=== PATIENT | male | born 1955 | race American Indian/Alaskan Native ===

== ENCOUNTER 2017-07-13 08:53 | Emergency (ER) | payer OTHER ==
[2017-07-13 09:03] VITALS: BMI 25.0
--- NOTE | 2017-07-13 09:25 | C.PDOC ---
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 The patient reports that he stood up to go use the bathroom and while standing he developed lightheadedness. Patient then sat down and felt improvement. Patient was found to have low BP in field by EMS. Currently the patient states he feels better and is asymptomatic. Denies Chest pain, SOB, numbness, weakness, leg pain/swelling, diaphoresis, fever, nausea, vomiting, headache, vision changes. Time Seen by Provider: 07/13/17 09:02 Chief Complaint (Nursing): Dizziness/Lightheaded History Per: Patient History/Exam Limitations: no limitations Onset/Duration Of Symptoms: Hrs (1) Current Symptoms Are (Timing): Still Present Past Medical History Reviewed: Historical Data, Nursing Documentation, Vital Signs Vital Signs: Last Vital Signs Temp 97.7 F 07/13/17 09:03 Pulse 92 H 07/13/17 09:03 Resp 18 07/13/17 09:03 BP 108/66 07/13/17 09:03 Pulse Ox 97 07/13/17 09:33 - Medical History PMH: Hypercholesterolemia Surgical History: Back Surgery (2003) Family History: States: No Known Family Hx - Social History Hx Alcohol Use: No Hx Substance Use: No - Immunization History Hx Tetanus Toxoid Vaccination: No Hx Influenza Vaccination: No Hx Pneumococcal Vaccination: No Review Of Systems Except As Marked, All Systems Reviewed And Found Negative. Constitutional: Negative for: Fever Eyes: Negative for: Vision Change Cardiovascular: Negative for: Chest Pain Respiratory: Negative for: Shortness of Breath Gastrointestinal: Negative for: Nausea, Vomiting Musculoskeletal: Negative for: Leg Pain Neurological: Positive for: Dizziness (near-syncope). Negative for: Weakness, Numbness, Headache Physical Exam - Physical Exam Appears: Well, No Acute Distress Skin: Normal Color, Warm, Dry, No Rash Head: Atraumatic, Normacephalic Eye(s): bilateral: Normal Inspection, PERRL, EOMI Nose: Normal Oral Mucosa: Moist Throat: Normal Neck: Normal ROM, Supple Chest: Symmetrical, No Tenderness Cardiovascular: Rhythm Regular, No Friction Rub, No Murmur Respiratory: Normal Breath Sounds, No Rales, No Rhonchi, No Stridor, No Wheezing Gastrointestinal/Abdominal: Normal Exam, Soft, No Tenderness Back: Normal Inspection, No CVA Tenderness Extremity: Normal ROM, No Pedal Edema, No Swelling Pulses: Left Radial: Normal, Right Radial: Normal, Left Dorsalis Pedis: Normal, Right Dorsalis Pedis: Normal Neurological/Psych: Oriented x3, Normal Speech, Normal Cranial Nerves, Normal Motor Gait: Steady ED Course And Treatment O2 Sat by Pulse Oximetry: 97 (on RA) Pulse Ox Interpretation: Normal Medical Decision Making Medical Decision Making: fingerstick is 183. Patient states that he recently had been placed on Flomax for elevated PSA, and was recently increased from 1 tablet to 2 tabs daily. This most likely causing hypotension. Also the patient did not eat or drink this morning. On re-exam, the patient remains asymptomatic. Lungs are CTA, heart is RRR, abdomen is soft, non-tender and is tolerating PO well. Ambulatory in the ED with steady gait. Follow up with the medical doctor within 1-2 days without fail. Return if worsened. Disposition Counseled Patient/Family Regarding: Studies Performed, Diagnosis, Need For Followup - Disposition Referrals: [facility] [Outside] Disposition: HOME/ ROUTINE Disposition Time: 10:17 Condition: GOOD Additional Instructions: DISCUSS WITH THE PMD ABOUT DECREASING THE FLOMAX TO ONCE PER DAY, NOT TWICE, WHICH MAY BE CAUSING THE HYPOTENSION. Follow up with the medical doctor within 1-2 days. Return if worsened. Instructions: Near Fainting (DC) Forms: [facility] (Japanese) - Clinical Impression Clinical Impression: Near syncope - Scribe Statement The provider has reviewed the documentation as recorded by the Scribe (ellis Chapman) All medical record entries made by the Scribe were at my direction and personally dictated by me. I have reviewed the chart and agree that the record accurately reflects my personal performance of the history, physical exam, medical decision making, and the department course for this patient. I have also personally directed, reviewed, and agree with the discharge instructions and disposition.
[2017-07-13 10:27] VITALS: BP 125/77; PULSE 94; RESP 20; TEMP 98; O2SAT 98
--- NOTE | 2017-07-13 13:10 | CARD ---
APPROVED REPORT EKG Measurement Heart [id number] <Conclusion> Normal sinus rhythm Nonspecific T wave abnormality Abnormal ECG
== END 2017-07-13 10:27 | disposition home or self-care (01) ==
LOC: C.ER 08:53
DX: R55 Syncope and collapse (principal); E78.00 Pure hypercholesterolemia, unspecified

== ENCOUNTER 2017-08-03 09:15 | Emergency (ER) | payer OTHER ==
[2017-08-03 09:15] VITALS: BMI 25.0
[2017-08-03] MEDS ORDERED: Sodium Chloride 0.9% 1,000 ML IV ONE (10:47)
[2017-08-03 11:09] LABS: BASO % 0.4 % (0.0-2.0); EOS # 0.1 K/uL (0.0-0.7); EOS % 1.7 % (0.0-4.0); HEMOGLOBIN 11.9 g/dL (12.0-18.0); LYMPH # 1.7 K/uL (1.0-4.3); LYMPH % 21.2 % (20.0-40.0); MEAN CELL VOLUME 84.6 fL (80.0-94.0); MEAN CORPUSCULAR HEMOGLOBIN 28.9 pg (27.0-31.0); MEAN CORPUSCULAR HGB CONC 34.2 g/dL (33.0-37.0); MEAN PLATELET VOLUME 7.7 fL (7.2-11.7); MONO # 0.5 K/uL (0.0-0.8); MONO % 5.7 % (0.0-10.0); NEUT # 5.7 K/uL (1.8-7.0); NRBC % 0.1 % (0.0-2.0); RBC 4.12 Mil/uL (4.40-5.90); RED CELL DISTRIBUTION WIDTH 13.7 % (11.5-14.5); WHITE BLOOD COUNT 8.1 K/uL (4.8-10.8)
[2017-08-03] MEDS ORDERED: Sodium Chloride 0.9% 1,000 ML ONE (11:13)
--- NOTE | 2017-08-03 11:20 | C.PDOC ---
History Of Present Illness 62 y/o male with diet controlled dm, high cholesterol and recently elevated PSA and uti (just finished bactrim on Sun) c/o 3 days of epigastric pain, nausea, decreased appetite. Pt unable to sleep last night due to pain. no vomiting or diarrhea. denies cp and sob. no cough. no fever or chills. pt with 23 pound wt loss in last 2 weeks. denies urinary symptoms, last bm today, normal. no change in bowel movements. Time Seen by Provider: 08/03/17 09:55 Chief Complaint (Nursing): Abdominal Pain History Per: Patient History/Exam Limitations: no limitations Onset/Duration Of Symptoms: Days (x3) Current Symptoms Are (Timing): Still Present Past Medical History Reviewed: Historical Data, Nursing Documentation, Vital Signs Vital Signs: Last Vital Signs Temp 98.6 F 08/03/17 16:16 Pulse 88 08/03/17 16:16 Resp 12 08/03/17 16:16 BP 114/68 08/03/17 16:16 Pulse Ox 96 08/03/17 16:41 - Medical History PMH: Back Problems, Benign Prostatic Hyperplasia, Hypercholesterolemia Surgical History: Back Surgery (2004 LUMBAR FUSION) - Social History Hx Alcohol Use: No Hx Substance Use: No - Immunization History Hx Tetanus Toxoid Vaccination: No Hx Influenza Vaccination: No Hx Pneumococcal Vaccination: No Review Of Systems Constitutional: Negative for: Fever, Chills Cardiovascular: Negative for: Chest Pain Respiratory: Negative for: Cough, Shortness of Breath Gastrointestinal: Positive for: Nausea, Abdominal Pain, Other (loss of appetite) . Negative for: Vomiting, Diarrhea, Constipation Genitourinary: Negative for: Dysuria, Frequency, Hematuria Physical Exam - Physical Exam Appears: No Acute Distress Skin: No Rash Head: Atraumatic, Normacephalic, Other (Mild temporal wasting) Eye(s): bilateral: PERRL, EOMI Oral Mucosa: Moist Neck: Supple Chest: No Tenderness Cardiovascular: Rhythm Regular, No Murmur Respiratory: No Rales, No Rhonchi, No Wheezing, Other (Clear to auscultation) Gastrointestinal/Abdominal: Bowel Sounds (normoactive), Soft, No Tenderness, No Distention Back: No CVA Tenderness Extremity: No Calf Tenderness, No Swelling Neurological/Psych: Oriented x3, Normal Speech, Normal Motor, Normal Sensation ED Course And Treatment - Laboratory Results Result Diagrams: 08/03/17 11:05 08/03/17 11:05 ECG: Interpreted By Me, Viewed By Me ECG Rhythm: Sinus Rhythm ECG Interpretation: Normal Rate From EC O2 Sat by Pulse Oximetry: 96 (RA) Pulse Ox Interpretation: Normal - Radiology CXR: Viewed By Me, Read By Radiologist CXR Interpretation: Yes: No Acute Disease - CT Scan/US Venous duplex- right lower ext Other Rad Studies (CT/US): Read By Radiologist, Radiology Report Reviewed CT/US Interpretation: Negative for DVT CT abdomen/pelvis Other Rad Studies (CT/US): Read By Radiologist, Radiology Report Reviewed CT/US Interpretation: FINDINGS: There is limited evaluation of the solid organs without the administration of IV contrast. LOWER THORAX: No visible consolidation, pleural effusion, or pneumothorax. LIVER: Unremarkable unenhanced appearance. GALLBLADDER AND BILE DUCTS: Unremarkable unenhanced appearance. PANCREAS: Unremarkable unenhanced appearance. SPLEEN: 13 mm probable splenule. Otherwise unremarkable unenhanced appearance. ADRENALS: Unremarkable unenhanced appearance. KIDNEYS AND URETERS: No hydronephrosis or obstructing renal calculus. BLADDER: Mildly thick-walled under distended urinary bladder. REPRODUCTIVE: The prostate gland measures approximately 4.1 x 5.5 cm. APPENDIX: The presumed appendix appears within normal limits of caliber. No secondary signs of acute appendicitis. BOWEL: The stomach is nondistended. The bowel loops appear within normal limits of caliber without evidence of intestinal obstruction. Moderate constipation. PERITONEUM: No significant free fluid. No definite free air. LYMPH NODES: Retroperitoneal lymph nodes measuring up to 1.2 cm in short axis on the right (series 3, image 84). Scattered sub cm inguinal iliac chain lymph nodes, nonspecific. VASCULATURE: No aortic aneurysm. BONES: L5-S1 posterior fusion hardware resultant streak artifact. Suspect 11 mm L1 vertebral body hemangioma. OTHER FINDINGS: None. IMPRESSION: Moderate constipation. Mildly thick-walled urinary bladder. Recommend correlation with urinalysis. Retroperitoneal lymph nodes measuring up to 1.2 cm in short axis on the right. Scattered sub cm inguinal iliac chain lymph nodes, nonspecific. Additional findings as above. Medical Decision Making Medical Decision Making: Time: 10:47 Initial Plan: * CMP * Lipase * Troponin I * CBC * Blood culture * Urine culture * Urinalysis * Chest x-ray * IV fluids * Zofran 4 mg IVP * Pending CT Abd/Pelvis with PO contrast 500pm pt feeling better, wants to eat; abdomen soft, nd, nt on re-exam, non longer nauseous. ua showing signs of infection, will d/c with cipro, f/u urologyu as well ans nephrology for elevated cr. family and patient understand. Disposition Counseled Patient/Family Regarding: Studies Performed, Diagnosis, Need For Followup, Rx Given - Disposition Referrals: Jonathan Garcia MD [Staff Provider] - Klaus Espino MD [Staff Provider] - Disposition: HOME/ ROUTINE Disposition Time: 17:16 Condition: IMPROVED Additional Instructions: Please take antibiotics as prescribed; take zofran for nausea as needed. Drink increased fluids. 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 Follow up with PMD as well about weight loss, REturh to ER for any worsening symptoms. 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 - Scribe Statement The provider has reviewed the documentation as recorded by the Scribe (Alma Rao) All medical record entries made by the Scribe were at my direction and personally dictated by me. I have reviewed the chart and agree that the record accurately reflects my personal performance of the history, physical exam, medical decision making, and the department course for this patient. I have also personally directed, reviewed, and agree with the discharge instructions and disposition.
[2017-08-03 11:26] LABS: ALB/GLOB RATIO 0.8 (1.0-2.1); ALBUMIN 3.7 g/dL (3.5-5.0); ALT/SGPT 39 U/L (21-72); AST/SGOT 30 U/L (17-59); BLOOD UREA NITROGEN 20 mg/dL (9-20); CALCIUM 8.9 mg/dl (8.6-10.4); GFR AFRICAN-AMERICAN 43; GFR NON-AFRICAN AMERICAN 36; LIPASE 120 U/L (23-300)
--- NOTE | 2017-08-03 11:28 | RAD ---
HISTORY: abd pain COMPARISON: No prior. TECHNIQUE: Chest PA and lateral FINDINGS: LUNGS: No active pulmonary disease. PLEURA: No significant pleural effusion identified. No pneumothorax apparent. CARDIOVASCULAR: Normal. OSSEOUS STRUCTURES: No significant abnormalities. VISUALIZED UPPER ABDOMEN: Normal. OTHER FINDINGS: None. IMPRESSION: No active disease.
[2017-08-03] MEDS ORDERED: Iohexol 240 (50 ml) PO ONE (12:01)
[2017-08-03 12:02] LABS: URINE BILIRUBIN NEGATIVE (NEGATIVE); URINE BLOOD 2+ (NEGATIVE); URINE CLARITY Clear (Clear); URINE COLOR Straw (YELLOW); URINE GLUCOSE (UA) NORMAL (Normal); URINE PROTEIN NEGATIVE (NEGATIVE); URINE UROBILINOGEN NORMAL mg/dL (0.2-1.0)
[2017-08-03 12:06] LABS: URINE LEUKOCYTE ESTERASE 1+ Leu/uL (Negative)
[2017-08-03] MEDS ORDERED: Iohexol 240 (50 ml) ONE (12:07)
--- NOTE | 2017-08-03 15:16 | CT ---
PROCEDURE: CT Abdomen and Pelvis without IV contrast. HISTORY: abd pain COMPARISON: None available TECHNIQUE: Contiguous axial images of the abdomen and pelvis. Oral contrast was administered. No IV contrast given. Coronal and Sagittal reformats generated and reviewed. Radiation dose: Total exam DLP = 735.88 mGy-cm. This CT exam was performed using one or more of the following dose reduction techniques: Automated exposure control, adjustment of the mA and/or kV according to patient size, and/or use of iterative reconstruction technique. FINDINGS: There is limited evaluation of the solid organs without the administration of IV contrast. LOWER THORAX: No visible consolidation, pleural effusion, or pneumothorax. LIVER: Unremarkable unenhanced appearance. GALLBLADDER AND BILE DUCTS: Unremarkable unenhanced appearance. PANCREAS: Unremarkable unenhanced appearance. SPLEEN: 13 mm probable splenule. Otherwise unremarkable unenhanced appearance. ADRENALS: Unremarkable unenhanced appearance. KIDNEYS AND URETERS: No hydronephrosis or obstructing renal calculus. BLADDER: Mildly thick-walled under distended urinary bladder. REPRODUCTIVE: The prostate gland measures approximately 4.1 x 5.5 cm. APPENDIX: The presumed appendix appears within normal limits of caliber. No secondary signs of acute appendicitis. BOWEL: The stomach is nondistended. The bowel loops appear within normal limits of caliber without evidence of intestinal obstruction. Moderate constipation. PERITONEUM: No significant free fluid. No definite free air. LYMPH NODES: Retroperitoneal lymph nodes measuring up to 1.2 cm in short axis on the right (series 3, image 84). Scattered sub cm inguinal iliac chain lymph nodes, nonspecific. VASCULATURE: No aortic aneurysm. BONES: L5-S1 posterior fusion hardware resultant streak artifact. Suspect 11 mm L1 vertebral body hemangioma. OTHER FINDINGS: None. IMPRESSION: Moderate constipation. Mildly thick-walled urinary bladder. Recommend correlation with urinalysis. Retroperitoneal lymph nodes measuring up to 1.2 cm in short axis on the right. Scattered sub cm inguinal iliac chain lymph nodes, nonspecific. Additional findings as above.
[2017-08-03 16:18] VITALS: TEMP 98.6
[2017-08-03 17:36] VITALS: BP 110/69; PULSE 92; RESP 17; O2SAT 100
--- NOTE | 2017-08-05 23:04 | CARD ---
APPROVED REPORT EKG Measurement Heart [id number] <Conclusion> Normal sinus rhythm Normal ECG
== END 2017-08-03 17:49 | disposition home or self-care (01) ==
LOC: C.ER 09:15
DX: R11.0 Nausea (principal); R10.13 Epigastric pain; E11.9 Type 2 diabetes mellitus without complications; E78.00 Pure hypercholesterolemia, unspecified
CPT/HCPCS: 71046; 74176; 80053; 81001; 83690; 84484; 85025; 87040; 87086; 93005; 96374; 99285; J2405; J7040; Q9966

== ENCOUNTER 2018-07-11 17:09 | Outpatient (CLI) | payer MEDICARE, OTHER | END 2018-07-11 17:10 | disposition home or self-care (01) | LOC: C.LAB 17:09 | DX: Z92.82 Status post administration of tPA (rtPA) in a different facility within the last 24 hours prior to admission to current facility (principal) ==

== ENCOUNTER 2018-08-05 17:04 | Outpatient (CLI) | payer OTHER, MEDICARE | END 2018-08-05 17:05 | disposition home or self-care (01) | LOC: C.LAB 17:04 ==

== ENCOUNTER 2018-08-15 12:45 | Outpatient (CLI) | payer OTHER, MEDICARE | END 2018-08-15 12:46 | disposition home or self-care (01) | LOC: C.CTH 12:45 | DX: D86.9 Sarcoidosis, unspecified (principal) ==